=== PATIENT | male | born 1960 | race Caucasian/White ===

== ENCOUNTER 2017-04-22 09:34 | Inpatient (IN) | payer BC ==
[2017-04-22 09:51] VITALS: BMI 29.8
--- NOTE | 2017-04-22 10:44 | HP ---
CIWA Score - CIWA Score Nausea/Vomitin Muscle Tremors: 3 Anxiety: 3 Agitation: 3 Paroxysmal Sweats: 3 Orientation: 0-Oriented Tacttile Disturbances: 1-Very Mild Itch/Numbness Auditory Disturbances: 0-None Visual Disturbances: 0-None Headache: 1-Very Mild CIWA-Ar Total Score: 17 Admission [facility] Chief Complaint: alcohol withdrawal sx Allergies/Adverse Reactions: Allergies Allergy/AdvReac Type Severity Reaction Status Date / Time No Known Allergies Allergy Verified 04/22/17 10:12 History of Present Illness: 56 yo m with h/o chronic alcohoism and multiple falls while intoxicated, injured lwft sie of face, found unconscious on floor at home by brother who sent him to [facility], was having blackousts and falls while drinking, hypokalemia, was sent by [facility] ED for inpatient detox from alchol because of alcohol withdrawal sx. was given medication in ED utox shoing +ve benzodiazepines, denies all other illicit drug use no seizures, no DTS, no sucicdal ideaton at this time. ambulating with a cane becase he is not very stable. PMHx anxiety, depression, blackout, wt loss, and insomnia, dehydration Exam Limitations: No Limitations - Ebola screening Have you traveled outside of the country in the last 21 days: No Have you had contact with anyone from an Ebola affected area: No Have you been sick,other than usual withdrawal symptoms: No Do you have a fever: No - Review of Systems Constitutional: Chills, Diaphoresis, Night Sweats, Changes in sleep, Unintentional Wgt. Loss EENT: reports: No Symptoms Reported Respiratory: reports: No Symptoms reported Cardiac: reports: No Symptoms Reported GI: reports: Diarrhea, Nausea, Poor Appetite, Poor Fluid Intake, Vomiting, Indigestion, Abdominal cramping : reports: No Symptoms Reported Musculoskeletal: reports: No Symptoms Reported Integumentary: reports: Flushing, Sweating Neuro: reports: Headache, Numbness, Tingling, Tremors Endocrine: reports: Flushing, Increased Thirst Hematology: reports: No Symptoms Reported Psychiatric: reports: Judgement Intact, Mood/Affect Appropiate, Orientated x3, Anxious, Depressed Other Systems: Reviewed and Negative Patient History - Patient Medical History Hx Anemia: No Hx Asthma: No Hx Chronic Obstructive Pulmonary Disease (COPD): No Hx Cancer: No Hx Cardiac Disorders: No Hx Congestive Heart Failure: No Hx Hypertension: Yes Hx Hypercholesterolemia: No Hx Pacemaker: No HX Cerebrovascular Accident: No Hx Seizures: No Hx Dementia: No Hx Diabetes: No Hx Gastrointestinal Disorders: Yes (acid reflux) Hx Liver Disease: No Hx Genitourinary Disorders: No Hx Sexually Transmitted Disorders: No Hx Renal Disease (ESRD): No Hx Thyroid Disease: No Hx Human Immunodeficiency Virus (HIV): No Hx Hepatitis C: No Hx Depression: Yes (no si at thsi time) Hx Suicide Attempt: No Hx Bipolar Disorder: No Hx Schizophrenia: No - Patient Surgical History Past Surgical History: No Hx Neurologic Surgery: No Hx Cataract Extraction: No Hx Cardiac Surgery: No Hx Lung Surgery: No Hx Breast Surgery: No Hx Breast Biopsy: No Hx Abdominal Surgery: No Hx Appendectomy: No Hx Cholecystectomy: No Hx Genitourinary Surgery: No Hx Section: No Hx Orthopedic Surgery: No Anesthesia Reaction: No - PPD History Previous Implant?: Yes Documented Results: Negative w/o proof Implanted On Prior R Admission?: No PPD to be Administered?: Yes - Reproductive History Patient is a Female of Child Bearing Age (11 -55 yrs old): No Patient : No - Smoking Cessation Smoking history: Current every day smoker Have you smoked in the past 12 months: Yes Aproximately how many cigarettes per day: 10 Hx Chewing Tobacco Use: No Initiated information on smoking cessation: Yes 'Breaking Loose' booklet given: 04/22/17 - Substance & Tx. History Hx Alcohol Use: Yes Hx Substance Use: No Hx Substance Use Treatment: Yes (first admission to [facility], detox 6 months ) - Substances Abused Alcohol-vodka Route: Oral Frequency: Daily Amount used: 1 liter Age of first use: 18 Date of Last Use: 04/21/17 Family Disease History - Family Disease History Family Disease History: Other: Father (alcoholism) Admission Physical Exam BHS - Vital Signs Vital Signs: Vital Signs - 24 hr 04/22/17 09:48 Temperature 96.1 F L Pulse Rate 90 Respiratory 20 Rate Blood Pressure 136/94 - Physical General Appearance: Yes: Nourished, Appropriately Dressed, Disheveled, Mild Distress, Tremorous, Irritable, Sweating, Anxious HEENTM: Yes: EOMI, Hearing grossly Normal, Normal ENT Inspection, Normocephalic , Normal Voice, PRANAV, Pharynx Normal, Other (abrsion left check, no sign of infection) Respiratory: Yes: Within Normal Limits, Chest Non-Tender, Lungs Clear, Normal Breath Sounds, No Respiratory Distress, No Accessory Muscle Use Neck: Yes: Within Normal Limits, No masses,lesions,Nodules, Supple, Trachea in good position Breast: Yes: Breast Exam Deferred Cardiology: Yes: Within Normal Limits, Regular Rhythm, Regular Rate, S1, S2 Abdominal: Yes: Within Normal Limits, Normal Bowel Sounds, Non Tender, Flat, Soft, Increased Bowel Sounds Genitourinary: Yes: Within Normal Limits Back: Yes: Normal Inspection, Decreased Range of Motion, Muscle Spasm (bulging disc) Musculoskeletal: Yes: Within Normal Limits, full range of Motion, Pelvis Stable , Other (unsteady ambulate with can becaseu of numbness in feet) Extremities: Yes: Normal Capillary Refill, Normal Range of Motion, Tremors Neurological: Yes: protection manager II-XII NML intact, Fully Oriented, Alert, Motor Strength 5/5, Normal Response, Depressed Affect Lymphatic: Yes: Within Normal Limits - Addiitonal Findings: withdrawal sx - Diagnostic (1) Alcohol dependence with uncomplicated withdrawal Current Visit: Yes Status: Acute (2) Peripheral neuropathy Current Visit: Yes Status: Acute (3) Ambulates with cane Current Visit: Yes Status: Acute (4) Nicotine dependence Current Visit: Yes Status: Acute (5) Ambulates with cane Current Visit: Yes Status: Acute (6) Dehydration Current Visit: Yes Status: Acute (7) Depression Current Visit: Yes Status: Acute (8) Facial abrasion Current Visit: Yes Status: Acute (9) Weight loss Current Visit: Yes Status: Acute (10) Blackout Current Visit: Yes Status: Acute Cleared for Admission [facility] - Detox or Rehab [facility] Level of Care: Medically Managed Detox Regimen/Protocol: Librium [facility] Breath Alcohol Content Breath Alcohol Content: 0 Urine Drug Screen - Results Drug Screen Negative: No Urine Drug Screen Results: BZO-Benzodiazepines
[2017-04-22] MEDS ORDERED: LOPERAMIDE HCL 2 MG CAPSULE PO PRN (10:46)
[2017-04-22] MEDS ORDERED: P-EPHED 60MG/TRIPROLIDI 2.5MG TABLET PO PRN (10:46)
[2017-04-22] MEDS ORDERED: NICOTINE POLACRILEX 2 MG GUM BUC PRN (10:46)
[2017-04-22] MEDS ORDERED: chlordiazePOXIDE HCL 25 MG CAPSULE PO ONE (10:46)
[2017-04-22] MEDS ORDERED: MENTHOL/PHENOL 1 EACH UD MM PRN (10:46)
[2017-04-22] MEDS ORDERED: MAGNESIUM CITRATE 300 ML BOTTLE PO PRN (10:46)
[2017-04-22] MEDS ORDERED: guaiFENesin/D-METHORPHAN HB 10 ML UNIT-DOSE CUPS PO PRN (10:46)
[2017-04-22] MEDS ORDERED: IBUPROFEN 400 MG TABLET (FP) PO PRN (10:46)
[2017-04-22] MEDS ORDERED: MAG HYDROX/AL HYDROX/SIMETH 30 ML UNIT-DOSE CUP PO PRN (10:46)
[2017-04-22] MEDS ORDERED: cloNIDine HCL 0.1 MG TABLET PO ONE (10:47)
[2017-04-22] MEDS ORDERED: BACITRACIN 0.9 GM PACKET TP ONE (10:52)
[2017-04-22] MEDS: amLODIPine BESYLATE 5 MG TABLET (FP) PO SCH (12:09)
[2017-04-22] MEDS: NICOTINE 14 MG/24 HOURS TOPICAL PATCH TD SCH (12:09)
[2017-04-22] MEDS: chlordiazePOXIDE HCL 25 MG CAPSULE PO SCH ×2 (17:22→22:40)
[2017-04-22] MEDS: ACETAMINOPHEN 325 MG TABLET (FP) PO PRN ×2 (17:24→22:40)
--- NOTE | 2017-04-22 18:45 | EKG ---
Test Reason : Blood Pressure : / mmHG Vent. Rate : 082 BPM Atrial Rate : 082 BPM P-R Int : 166 ms QRS Dur : 076 ms QT Int : 380 ms P-R-T Axes : 036 027 027 degrees QTc Int : 443 ms NORMAL SINUS RHYTHM NORMAL ECG NO PREVIOUS ECGS AVAILABLE Confirmed by MD EDIS, ASHLEY ([id number]) on 04/22/2017 6:45:31 PM Referred By: Eloy Walter Confirmed By:ASHLEY RANDHAWA MD
[2017-04-22] MEDS: THIAMINE HCL 100 MG TABLET (FP) PO SCH (22:39)
[2017-04-22 22:59] LABS: URINE APPEARANCE TURBID; URINE BLOOD NEGATIVE (NEGATIVE); URINE COLOR YELLOW; URINE GLUCOSE (UA) NEGATIVE (NEGATIVE); URINE KETONE NEGATIVE (NEGATIVE); URINE LEUK ESTERASE NEGATIVE (NEGATIVE); URINE NITRITE NEGATIVE (NEGATIVE); URINE UROBILINOGEN 4.0 E.U/dl mg/dL (0.2-1.0)
[2017-04-22 23:00] LABS: URINE PROTEIN 2+ (NEGATIVE)
[2017-04-22 23:07] LABS: EPI CELLS RARE /HPF (FEW); URINE BACTERIA RARE /hpf (NONE SEEN); URINE HYALINE CAST 31 /lpf; URINE MUCUS MANY
[2017-04-23] MEDS: hydrOXYzine PAMOATE 50 MG CAPSULE (FP) PO PRN (01:04)
[2017-04-23] MEDS: chlordiazePOXIDE HCL 25 MG CAPSULE PO PRN (01:04)
[2017-04-23] MEDS: chlordiazePOXIDE HCL 25 MG CAPSULE PO SCH ×4 (05:47→22:14)
[2017-04-23] MEDS: MAGNESIUM HYDROX 2400MG/30ML ORAL SUSPENSION 30 ML CUP PO PRN (07:44)
[2017-04-23 10:12] LABS: HEMATOCRIT 34.8 % (35.4-49); HEMOGLOBIN 11.3 GM/dL (11.7-16.9); MCH 33.6 pg (25.7-33.7); MCHC 32.6 g/dl (32.0-35.9); MEAN CELL VOLUME 103.1 fl (80-96); MEAN PLT VOLUME 8.9 fl (7.5-11.1); PLATELET COUNT 124 K/MM3 (134-434); RBC 3.38 M/mm3 (4.00-5.60); WHITE BLOOD COUNT 5.6 K/mm3 (4.0-10.0)
[2017-04-23 10:19] LABS: CHLORIDE 106 mmol/L (98-107); POTASSIUM 3.6 mmol/L (3.5-5.1); SODIUM 143 mmol/L (136-145)
--- NOTE | 2017-04-23 10:33 | CONSULT ---
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 Substance Abuse History: Confirmed by patient in this interview.Mr Baer reports that his daily consumption of vodka has escalated in the past two months.See current [facility] report for details. Smoking history: Current every day smoker. Have you smoked in the past 12 months: Yes. Aproximately how many cigarettes per day: 10. Hx Chewing Tobacco Use: No. Initiated information on smoking cessation: Yes. 'Breaking Loose' booklet given: 04/22/17. - Substance & Tx. History. Hx Alcohol Use: Yes. Hx Substance Use: No. Hx Substance Use Treatment: Yes (first admission to [facility], detox 6 months ). - Substances Abused. Alcohol-vodka. Route: Oral. Frequency: Daily. Amount used: 1 liter. Age of first use: 18. Date of Last Use: 04/21/17 Medical History: Hypertension,GERD and a history of orthosurgery for torn meniscus (right knee) as per self-report.Patient ambulates with a cane. Psychiatric History: Patient admits to one psychiatric hospitalization at [facility] a few months ago.Reason for admission : suicidal ideation.Retained for four days and released to [facility] care but the patient never followed.Not on psychotropic medications.Mr Baer declares that he does not have a mental illness and that he was not given a diagnosis during his brief psychiatric hospitalization.Patient denies history of suicide attempts. Physical/Sexual Abuse/Trauma History: Patient denies. Additional Comment: Urine Drug Screen Results: BZO-Benzodiazepines.Noted. Mental Status Exam - Mental Status Exam Alert and Oriented to: Time, Place, Person Cognitive Function: Good Patient Appearance: Disheveled Mood: Nervous, Withdrawn Affect: Mood Congruent Patient Behavior: Fatigued, Appropriate, Cooperative Speech Pattern: Clear, Appropriate Voice Loudness: Normal Thought Process: Intact, Goal Oriented Thought Disorder: Not Present Hallucinations: Denies Suicidal Ideation: Denies Homicidal Ideation: Denies Insight/Judgement: Poor Sleep: Poorly, Difficulty falling asleep Appetite: Good Muscle strength/Tone: Normal Gait/Station: Other (walks with a cane) Psychiatric Findings - Problem List ([place] 1, 2,3) (1) Alcohol dependence with uncomplicated withdrawal Current Visit: Yes Status: Acute (2) Nicotine dependence Current Visit: Yes Status: Acute (3) Insomnia Current Visit: Yes Status: Acute - Initial Treatment Plan Initial Treatment Plan: Psychoeducation and empathy provided to patient in this session.Sleep hygiene.Detoxification in progress.Ambien 5 mg po hs prn.patient is made aware of the risk of parasomnias (sleep-walking).Agrees with this careplan.Observation.Fall precautions.
[2017-04-23 10:38] LABS: ALBUMIN 2.9 g/dl (3.4-5.0); ALK PHOS 91 U/L (45-117); ANION GAP 8 (8-16); BILIRUBIN,TOTAL 0.6 mg/dL (0.2-1.0); BLOOD UREA NITROGEN 9 mg/dL (7-18); CALCIUM 7.9 mg/dL (8.5-10.1); CO2 29 mmol/L (21-32); CREATININE 0.6 mg/dL (0.7-1.3); GLUCOSE,RANDOM 95 mg/dL (74-106); SGOT/AST 31 U/L (15-37); SGPT/ALT 19 U/L (12-78); TOT PROT 5.9 g/dl (6.4-8.2)
[2017-04-23] MEDS: amLODIPine BESYLATE 5 MG TABLET (FP) PO SCH (10:44)
[2017-04-23] MEDS: NICOTINE 14 MG/24 HOURS TOPICAL PATCH TD SCH (10:44)
[2017-04-23] MEDS: PRENATAL VITAMINS W/ FOLIC ACID TABLET (FP) PO SCH (10:44)
[2017-04-23] MEDS: ACETAMINOPHEN 325 MG TABLET (FP) PO PRN (10:45)
--- NOTE | 2017-04-23 12:09 | PN ---
S CIWA - CIWA Score Nausea/Vomitin-No Nausea/No Vomiting Muscle Tremors: 4-Moderate,w/Arms Extend Anxiety: 4-Mod. Anxious/Guarded Agitation: 4-Moderately Restless Paroxysmal Sweats: 1-Minimal Palms Moist Orientation: 0-Oriented Tacttile Disturbances: 3-Moderate Itch/Numb/Burn Auditory Disturbances: 0-None Visual Disturbances: 0-None Headache: 0-None Present CIWA-Ar Total Score: 16 BHS Progress Note (SOAP) Subjective: ANXIETY,SWEATS,INTERMITTENT SLEEP.BENADRYL LAST NIGHT WITH SOME EFFECTIVENESS. WANTS TO F/U WITH PSYCH FOR INSOMNIA EVALUATION. Objective: 04/23/17 12:08 Vital Signs Temperature 97.3 F L 04/23/17 10:00 Pulse Rate 73 04/23/17 10:00 Respiratory Rate 20 04/23/17 10:00 Blood Pressure 133/93 04/23/17 10:00 O2 Sat by Pulse Oximetry (%) Laboratory Last Values WBC 5.6 K/mm3 (4.0-10.0) 04/23/17 06:30 RBC 3.38 M/mm3 (4.00-5.60) L 04/23/17 06:30 Hgb 11.3 GM/dL (11.7-16.9) L 04/23/17 06:30 Hct 34.8 % (35.4-49) L 04/23/17 06:30 MCV 103.1 fl (80-96) H 04/23/17 06:30 MCH 33.6 pg (25.7-33.7) 04/23/17 06:30 MCHC 32.6 g/dl (32.0-35.9) 04/23/17 06:30 RDW 17.0 % (11.9-15.9) H 04/23/17 06:30 Plt Count 124 K/MM3 (134-434) L 04/23/17 06:30 MPV 8.9 fl (7.5-11.1) 04/23/17 06:30 Sodium 143 mmol/L (136-145) 04/23/17 06:30 Potassium 3.6 mmol/L (3.5-5.1) 04/23/17 06:30 Chloride 106 mmol/L (98-107) 02/26/18 06:30 Carbon Dioxide 29 mmol/L (21-32) 04/23/17 06:30 Anion Gap 8 (8-16) 04/23/17 06:30 BUN 9 mg/dL (7-18) 04/23/17 06:30 Creatinine 0.6 mg/dL (0.7-1.3) L 04/23/17 06:30 Creat Clearance w eGFR > 60 (>60) 04/23/17 06:30 Random Glucose 95 mg/dL (74-106) 04/23/17 06:30 Calcium 7.9 mg/dL (8.5-10.1) L 04/23/17 06:30 Total Bilirubin 0.6 mg/dL (0.2-1.0) 04/23/17 06:30 AST 31 U/L (15-37) 04/23/17 06:30 ALT 19 U/L (12-78) 04/23/17 06:30 Alkaline Phosphatase 91 U/L (45-117) 04/23/17 06:30 Total Protein 5.9 g/dl (6.4-8.2) L 04/23/17 06:30 Albumin 2.9 g/dl (3.4-5.0) L 04/23/17 06:30 Urine Color Yellow 04/22/17 15:46 Urine Appearance Turbid 04/22/17 15:46 Urine pH 5.0 (5.0-8.0) 04/22/17 15:46 Ur Specific [place] 1.028 (1.001-1.035) 04/22/17 15:46 Urine Protein 2+ (NEGATIVE) H 04/22/17 15:46 Urine Glucose (UA) Negative (NEGATIVE) 04/22/17 15:46 Urine Ketones Negative (NEGATIVE) 04/22/17 15:46 Urine Blood Negative (NEGATIVE) 04/22/17 15:46 Urine Nitrite Negative (NEGATIVE) 04/22/17 15:46 Urine Bilirubin 2.0 (NEGATIVE) 04/22/17 15:46 Urine Urobilinogen 4.0 e.u/dl mg/dL (0.2-1.0) 04/22/17 15:46 Ur Leukocyte Esterase Negative (NEGATIVE) 04/22/17 15:46 Urine WBC (Auto) None /hpf (3-5) 04/22/17 15:46 Urine RBC (Auto) 6 /hpf (0-3) 04/22/17 15:46 Ur Epithelial Cells Rare /HPF (FEW) 04/22/17 15:46 Urine Bacteria Rare /hpf (NONE SEEN) 04/22/17 15:46 Hyaline Casts 31 /lpf 04/22/17 15:46 Urine Mucus Many 04/22/17 15:46 Assessment: 04/23/17 12:08 WITHDRAWAL SX Plan: CONTINUE DETOX INCREASE PO FLUIDS.
[2017-04-23] MEDS: THIAMINE HCL 100 MG TABLET (FP) PO SCH (22:14)
[2017-04-23] MEDS: ZOLPIDEM TARTRATE 5 MG TABLET PO PRN (22:16)
[2017-04-24] MEDS: chlordiazePOXIDE HCL 25 MG CAPSULE PO PRN (02:21)
[2017-04-24] MEDS: hydrOXYzine PAMOATE 50 MG CAPSULE (FP) PO PRN (02:32)
[2017-04-24] MEDS: chlordiazePOXIDE HCL 25 MG CAPSULE PO SCH ×2 (05:43→11:02)
[2017-04-24] MEDS: PRENATAL VITAMINS W/ FOLIC ACID TABLET (FP) PO SCH (11:00)
[2017-04-24] MEDS: amLODIPine BESYLATE 5 MG TABLET (FP) PO SCH (11:01)
[2017-04-24] MEDS: NICOTINE 14 MG/24 HOURS TOPICAL PATCH TD SCH (11:01)
--- NOTE | 2017-04-24 11:31 | PN ---
[facility] CIWA - CIWA Score Nausea/Vomitin-No Nausea/No Vomiting Muscle Tremors: 4-Moderate,w/Arms Extend Anxiety: 4-Mod. Anxious/Guarded Agitation: 4-Moderately Restless Paroxysmal Sweats: 1-Minimal Palms Moist Orientation: 0-Oriented Tacttile Disturbances: 3-Moderate Itch/Numb/Burn Auditory Disturbances: 0-None Visual Disturbances: 0-None Headache: 0-None Present CIWA-Ar Total Score: 16 S Progress Note (SOAP) Subjective: ANXIETY, SWEATS,INTERMITTENT SLEEP. Objective: 04/24/17 11:30 Vital Signs Temperature 98.9 F 04/24/17 10:05 Pulse Rate 81 04/24/17 10:05 Respiratory Rate 20 04/24/17 10:05 Blood Pressure 139/86 04/24/17 10:05 O2 Sat by Pulse Oximetry (%) Laboratory Last Values WBC 5.6 K/mm3 (4.0-10.0) 04/23/17 06:30 RBC 3.38 M/mm3 (4.00-5.60) L 04/23/17 06:30 Hgb 11.3 GM/dL (11.7-16.9) L 04/23/17 06:30 Hct 34.8 % (35.4-49) L 04/23/17 06:30 MCV 103.1 fl (80-96) H 04/23/17 06:30 MCH 33.6 pg (25.7-33.7) 04/23/17 06:30 MCHC 32.6 g/dl (32.0-35.9) 04/23/17 06:30 RDW 17.0 % (11.9-15.9) H 04/23/17 06:30 Plt Count 124 K/MM3 (134-434) L 04/23/17 06:30 MPV 8.9 fl (7.5-11.1) 04/23/17 06:30 Sodium 143 mmol/L (136-145) 04/23/17 06:30 Potassium 3.6 mmol/L (3.5-5.1) 04/23/17 06:30 Chloride 106 mmol/L (98-107) 04/23/17 06:30 Carbon Dioxide 29 mmol/L (21-32) 04/23/17 06:30 Anion Gap 8 (8-16) 04/23/17 06:30 BUN 9 mg/dL (7-18) 04/23/17 06:30 Creatinine 0.6 mg/dL (0.7-1.3) L 04/23/17 06:30 Creat Clearance w eGFR > 60 (>60) 04/23/17 06:30 Random Glucose 95 mg/dL (74-106) 04/23/17 06:30 Calcium 7.9 mg/dL (8.5-10.1) L 04/23/17 06:30 Total Bilirubin 0.6 mg/dL (0.2-1.0) 04/23/17 06:30 AST 31 U/L (15-37) 04/23/17 06:30 ALT 19 U/L (12-78) 04/23/17 06:30 Alkaline Phosphatase 91 U/L (45-117) 04/23/17 06:30 Total Protein 5.9 g/dl (6.4-8.2) L 04/23/17 06:30 Albumin 2.9 g/dl (3.4-5.0) L 04/23/17 06:30 Urine Color Yellow 04/22/17 15:46 Urine Appearance Turbid 04/22/17 15:46 Urine pH 5.0 (5.0-8.0) 04/22/17 15:46 Ur Specific [place] 1.028 (1.001-1.035) 04/22/17 15:46 Urine Protein 2+ (NEGATIVE) H 04/22/17 15:46 Urine Glucose (UA) Negative (NEGATIVE) 04/22/17 15:46 Urine Ketones Negative (NEGATIVE) 04/22/17 15:46 Urine Blood Negative (NEGATIVE) 04/22/17 15:46 Urine Nitrite Negative (NEGATIVE) 04/22/17 15:46 Urine Bilirubin 2.0 (NEGATIVE) 04/22/17 15:46 Urine Urobilinogen 4.0 e.u/dl mg/dL (0.2-1.0) 04/22/17 15:46 Ur Leukocyte Esterase Negative (NEGATIVE) 04/22/17 15:46 Urine WBC (Auto) None /hpf (3-5) 04/22/17 15:46 Urine RBC (Auto) 6 /hpf (0-3) 04/22/17 15:46 Ur Epithelial Cells Rare /HPF (FEW) 04/22/17 15:46 Urine Bacteria Rare /hpf (NONE SEEN) 04/22/17 15:46 Hyaline Casts 31 /lpf 04/22/17 15:46 Urine Mucus Many 04/22/17 15:46 RPR Titer Nonreactive (NONREACTIVE) 04/23/17 06:30 Assessment: 04/24/17 11:30 WITHDRAWAL SX Plan: CONTINUE DETOX
[2017-04-24] MEDS: chlordiazePOXIDE 5 MG CAPSULE PO SCH ×2 (17:46→22:18)
[2017-04-24] MEDS: MAGNESIUM HYDROX 2400MG/30ML ORAL SUSPENSION 30 ML CUP PO PRN (19:37)
[2017-04-24] MEDS: ZOLPIDEM TARTRATE 5 MG TABLET PO PRN (22:18)
[2017-04-24] MEDS: THIAMINE HCL 100 MG TABLET (FP) PO SCH (22:18)
[2017-04-25] MEDS: chlordiazePOXIDE 5 MG CAPSULE PO SCH ×2 (05:57→10:38)
--- NOTE | 2017-04-25 09:47 | PN ---
Psychiatric Progress Note Vital Signs: Vital Signs Period Temp Pulse Resp BP Sys/Nichols Pulse Ox Last 24 Hr 96.7 F-98.9 F 69-98 18-20 115-139/75-89 Date of Session: 04/25/17 Chief Complaint:: " I cannot sleep at night." HPI: Asked to re-consult for insomnia.Patient is doing well otherwise.Detoxification is well tolerated.Mr Baer is scheduled for discharge tomorrow 04/26/17. ROS: Patient is alert and fully oriented.Ambulating with cane. Current Medications: Active Medications Generic Name Dose Route Start Last Admin Trade Name Freq PRN Reason Stop Dose Admin Acetaminophen 650 mg 04/22/17 10:46 04/23/17 10:45 Tylenol - PO 650 mg Q4H PRN Administration FEVER Al Hydroxide/Mg Hydroxide 30 ml 04/22/17 10:46 Mylanta Oral Suspension - PO Q6H PRN DYSPEPSIA Amlodipine Besylate 5 mg 04/22/17 11:00 04/24/17 11:01 Norvasc - PO 5 mg DAILY SESAR Administration Chlordiazepoxide HCl 15 mg 04/24/17 17:00 04/25/17 05:57 Librium - PO 04/25/17 11:01 15 mg [id number] SESAR Administration Chlordiazepoxide HCl 25 mg 04/22/17 10:46 04/24/17 02:21 Librium - PO 04/25/17 10:45 25 mg Q4H PRN Administration WITHDRAWAL(CONT SUBST) Chlordiazepoxide HCl 10 mg 04/25/17 17:00 Librium - PO 04/26/17 11:01 [id number] SESAR Eucalyptus/Menthol/Phenol/Sorbitol 1 each 04/22/17 10:46 Cepastat Lozenge - MM Q4H PRN SORE THROAT Guaifenesin 10 ml 04/22/17 10:46 Robitussin Dm - PO Q6H PRN COUGH Hydroxyzine Pamoate 50 mg 04/22/17 10:46 04/24/17 02:32 Vistaril - PO 50 mg Q4H PRN Administration AGITATION Ibuprofen 400 mg 04/22/17 10:46 Motrin - PO Q6H PRN PAIN LEVEL 4-6 Loperamide HCl 4 mg 04/22/17 10:46 Imodium - PO Q6H PRN DIARRHEA Magnesium Citrate 300 ml 04/22/17 10:46 Citroma - PO Q48H PRN CONSTIPATION Magnesium Hydroxide 30 ml 04/22/17 10:46 04/24/17 19:37 Milk Of Magnesia - PO 30 ml DAILY PRN Administration CONSTIPATION Nicotine 14 mg 04/22/17 11:00 04/24/17 11:01 Nicoderm Patch - TD Not Given DAILY SESAR Nicotine Polacrilex 2 mg 04/22/17 10:46 Nicorette Gum - BUC Q2H PRN NICOTINE REPLACEMENT RX Multivit/Folic Acid/Iron 1 tab 04/23/17 10:00 04/24/17 11:00 Vitamins (Sjr) - PO 1 tab DAILY SESAR Administration Pseudoephedrine/Triprolidine 1 combo 04/22/17 10:46 Actifed - PO TID PRN NASAL CONGESTION Thiamine HCl 100 mg 04/22/17 22:00 04/24/17 22:18 Vitamin B1 - PO 100 mg HS SESAR Administration Zolpidem Tartrate 5 mg 04/23/17 22:00 04/24/17 22:18 Ambien - PO 04/26/17 21:59 5 mg HS PRN Administration INSOMNIA Medication(s) Change(s): Ambien is raised to 10 mg po hs prn.Patient agrees with that careplan. Current Side Effect: No Lab tests ordered: No Lab tests reviewed: Yes Provider note:: Met with patient. Total face to face time:: 25 Mental Status Exam - Mental Status Exam Alert and Oriented to: Time, Place, Person Cognitive Function: Good Patient Appearance: Well Groomed Mood: Hopeful, Euthymic Affect: Appropriate, Normal Range Patient Behavior: Appropriate, Cooperative Speech Pattern: Clear, Appropriate Voice Loudness: Normal Thought Process: Intact, Goal Oriented Thought Disorder: Not Present Hallucinations: Denies Suicidal Ideation: Denies Homicidal Ideation: Denies Insight/Judgement: Fair Sleep: Poorly, Difficulty falling asleep Appetite: Good Gait/Station: Normal (walks with cane) Psychiatric Treatment Plan - Problem List (1) Alcohol dependence with uncomplicated withdrawal Current Visit: Yes (2) Nicotine dependence Current Visit: Yes Qualifiers: Nicotine product type: cigarettes Substance use status: in withdrawal Qualified Code(s): F17.213 - Nicotine dependence, cigarettes, with withdrawal (3) Insomnia Current Visit: Yes
[2017-04-25] MEDS: PRENATAL VITAMINS W/ FOLIC ACID TABLET (FP) PO SCH (10:38)
[2017-04-25] MEDS: NICOTINE 14 MG/24 HOURS TOPICAL PATCH TD SCH (10:38)
[2017-04-25] MEDS: amLODIPine BESYLATE 5 MG TABLET (FP) PO SCH (10:38)
--- NOTE | 2017-04-25 12:19 | PN ---
BHS Progress Note (SOAP) Subjective: ANXIETY,SWEATS,IRRITABILITY,INTERMITTENT SLEEP-AMBIEN 5 MG NOT EFFECTIVE. Objective: 04/25/17 12:18 Vital Signs Temperature 97.0 F L 04/25/17 09:22 Pulse Rate 88 04/25/17 09:22 Respiratory Rate 18 04/25/17 09:22 Blood Pressure 122/89 04/25/17 09:22 O2 Sat by Pulse Oximetry (%) Laboratory Tests 04/22/17 04/23/17 04/23/17 15:46 06:30 06:30 WBC 5.6 RBC 3.38 L Hgb 11.3 L Hct 34.8 L MCV 103.1 H MCH 33.6 MCHC 32.6 RDW 17.0 H Plt Count 124 L MPV 8.9 Sodium 143 Potassium 3.6 Chloride 106 Carbon Dioxide 29 Anion Gap 8 BUN 9 Creatinine 0.6 L Creat Clearance w eGFR > 60 Random Glucose 95 Calcium 7.9 L Total Bilirubin 0.6 AST 31 ALT 19 Alkaline Phosphatase 91 Total Protein 5.9 L Albumin 2.9 L Urine Color Yellow Urine Appearance Turbid Urine pH 5.0 Ur Specific [place] 1.028 Urine Protein 2+ H Urine Glucose (UA) Negative Urine Ketones Negative Urine Blood Negative Urine Nitrite Negative Urine Bilirubin 2.0 Urine Urobilinogen 4.0 e.u/dl Ur Leukocyte Esterase Negative Urine WBC (Auto) None Urine RBC (Auto) 6 Ur Epithelial Cells Rare Urine Bacteria Rare Hyaline Casts 31 Urine Mucus Many RPR Titer 04/23/17 06:30 WBC RBC Hgb Hct MCV MCH MCHC RDW Plt Count MPV Sodium Potassium Chloride Carbon Dioxide Anion Gap BUN Creatinine Creat Clearance w eGFR Random Glucose Calcium Total Bilirubin AST ALT Alkaline Phosphatase Total Protein Albumin Urine Color Urine Appearance Urine pH Ur Specific [place] Urine Protein Urine Glucose (UA) Urine Ketones Urine Blood Urine Nitrite Urine Bilirubin Urine Urobilinogen Ur Leukocyte Esterase Urine WBC (Auto) Urine RBC (Auto) Ur Epithelial Cells Urine Bacteria Hyaline Casts Urine Mucus RPR Titer Nonreactive Assessment: 04/25/17 12:19 WITHDRAWAL SX Plan: CONTINUE DETOX
[2017-04-25] MEDS ORDERED: COLLOIDAL OATMEAL 1 BAR EACH TP PRN (13:15)
[2017-04-25] MEDS: chlordiazePOXIDE HCL 10 MG CAPSULE PO SCH ×2 (17:23→22:16)
[2017-04-25] MEDS ORDERED: ZOLPIDEM TARTRATE 10 MG TABLET (PARK CARE ONLY) PO PRN (22:00)
[2017-04-25] MEDS: THIAMINE HCL 100 MG TABLET (FP) PO SCH (22:16)
[2017-04-26] MEDS: hydrOXYzine PAMOATE 50 MG CAPSULE (FP) PO PRN (01:16)
[2017-04-26] MEDS: chlordiazePOXIDE HCL 10 MG CAPSULE PO SCH (05:42)
[2017-04-26] MEDS: ACETAMINOPHEN 325 MG TABLET (FP) PO PRN (05:44)
[2017-04-26 07:02] VITALS: BP 124/85; PULSE 74; TEMP 96.4
--- NOTE | 2017-04-26 08:43 | DS ---
[facility] Detox Discharge Summary Admission Date: 04/22/17 Discharge Date: 04/26/17 - History Present History: Alcohol Dependence Additional Comments: DETOX COMPLETED. ALERT O X 3. PT STSTES WILL F/U WITH PMD DR EDUARDO ZAMAN AT [facility]. Pertinent Past History: SEE DX BELOW - Physical Exam Results Vital Signs: Vital Signs Temperature 96.4 F L 04/26/17 07:01 Pulse Rate 74 04/26/17 07:01 Respiratory Rate 18 04/26/17 07:01 Blood Pressure 124/85 04/26/17 07:01 O2 Sat by Pulse Oximetry (%) Pertinent Admission Physical Exam Findings: WITHDRAWAL SX Laboratory Last Values WBC 5.6 K/mm3 (4.0-10.0) 04/23/17 06:30 RBC 3.38 M/mm3 (4.00-5.60) L 04/23/17 06:30 Hgb 11.3 GM/dL (11.7-16.9) L 04/23/17 06:30 Hct 34.8 % (35.4-49) L 04/23/17 06:30 MCV 103.1 fl (80-96) H 04/23/17 06:30 MCH 33.6 pg (25.7-33.7) 04/23/17 06:30 MCHC 32.6 g/dl (32.0-35.9) 04/23/17 06:30 RDW 17.0 % (11.9-15.9) H 04/23/17 06:30 Plt Count 124 K/MM3 (134-434) L 04/23/17 06:30 MPV 8.9 fl (7.5-11.1) 04/23/17 06:30 Sodium 143 mmol/L (136-145) 04/23/17 06:30 Potassium 3.6 mmol/L (3.5-5.1) 04/23/17 06:30 Chloride 106 mmol/L (98-107) 04/23/17 06:30 Carbon Dioxide 29 mmol/L (21-32) 04/23/17 06:30 Anion Gap 8 (8-16) 04/23/17 06:30 BUN 9 mg/dL (7-18) 04/23/17 06:30 Creatinine 0.6 mg/dL (0.7-1.3) L 04/23/17 06:30 Creat Clearance w eGFR > 60 (>60) 04/23/17 06:30 Random Glucose 95 mg/dL (74-106) 04/23/17 06:30 Calcium 7.9 mg/dL (8.5-10.1) L 04/23/17 06:30 Total Bilirubin 0.6 mg/dL (0.2-1.0) 04/23/17 06:30 AST 31 U/L (15-37) 04/23/17 06:30 ALT 19 U/L (12-78) 04/23/17 06:30 Alkaline Phosphatase 91 U/L (45-117) 04/23/17 06:30 Total Protein 5.9 g/dl (6.4-8.2) L 04/23/17 06:30 Albumin 2.9 g/dl (3.4-5.0) L 04/23/17 06:30 Urine Color Yellow 04/22/17 15:46 Urine Appearance Turbid 04/22/17 15:46 Urine pH 5.0 (5.0-8.0) 04/22/17 15:46 Ur Specific [place] 1.028 (1.001-1.035) 04/22/17 15:46 Urine Protein 2+ (NEGATIVE) H 04/22/17 15:46 Urine Glucose (UA) Negative (NEGATIVE) 04/22/17 15:46 Urine Ketones Negative (NEGATIVE) 04/22/17 15:46 Urine Blood Negative (NEGATIVE) 04/22/17 15:46 Urine Nitrite Negative (NEGATIVE) 04/22/17 15:46 Urine Bilirubin 2.0 (NEGATIVE) 04/22/17 15:46 Urine Urobilinogen 4.0 e.u/dl mg/dL (0.2-1.0) 04/22/17 15:46 Ur Leukocyte Esterase Negative (NEGATIVE) 04/22/17 15:46 Urine WBC (Auto) None /hpf (3-5) 04/22/17 15:46 Urine RBC (Auto) 6 /hpf (0-3) 04/22/17 15:46 Ur Epithelial Cells Rare /HPF (FEW) 04/22/17 15:46 Urine Bacteria Rare /hpf (NONE SEEN) 04/22/17 15:46 Hyaline Casts 31 /lpf 04/22/17 15:46 Urine Mucus Many 04/22/17 15:46 RPR Titer Nonreactive (NONREACTIVE) 04/23/17 06:30 - Treatment Hospital Course: Detox Protocol Followed, Detoxed Safely, Responded well, Discharged Condition Good - Medication Discharge Medications: Ambulatory Orders Amlodipine Besylate [Norvasc -] 5 mg PO DAILY #30 tablet 04/26/17 - Diagnosis (1) Alcohol dependence with uncomplicated withdrawal Status: Acute (2) Ambulates with cane Status: Chronic (3) Dehydration Status: Acute (4) Nicotine dependence Status: Acute Qualifiers: Nicotine product type: cigarettes Substance use status: in withdrawal Qualified Code(s): F17.213 - Nicotine dependence, cigarettes, with withdrawal (5) Peripheral neuropathy Status: Chronic Qualifiers: Peripheral neuropathy type: polyneuropathy, unspecified Qualified Code(s): G62.9 - Polyneuropathy, unspecified (6) Weight loss Status: Acute - AMA Did Patient Leave Against Medical Advice: No
== END 2017-04-26 08:50 | disposition home or self-care (01) | DRG 897 ==
LOC: YASAS 09:34 → Y3N 11:21
PROVIDERS: ADMIT Internal Medicine; ATTEND Internal Medicine
PROC: HZ2ZZZZ Detoxification Services for Substance Abuse Treatment (ICD-10-PCS; principal; 2017-04-22)
DX: F10.230 Alcohol dependence with withdrawal, uncomplicated (principal); F17.213 Nicotine dependence, cigarettes, with withdrawal; F32.9 Major depressive disorder, single episode, unspecified; E86.0 Dehydration; G62.9 Polyneuropathy, unspecified; G47.00 Insomnia, unspecified; I10 Essential (primary) hypertension; K21.9 Gastro-esophageal reflux disease without esophagitis; R26.2 Difficulty in walking, not elsewhere classified; Z99.89 Dependence on other enabling machines and devices; Z87.898 Personal history of other specified conditions
CPT/HCPCS: 36415; 80053; 81003; 81015; 85027; 86593; 93005; 93010; J0735